=== PATIENT | male | born 1980 | race American Indian/Alaskan Native ===

== ENCOUNTER 2018-10-31 04:59 | Emergency (ER) | payer OTHER ==
[2018-10-31] MEDS ORDERED: ASPIRIN PO ONE (05:14)
[2018-10-31 05:41] LABS: Basophils # (Auto) 0.1 K/mm3 (0.0-0.1); Basophils % (Auto) 1.1 % (0.0-1.8); Eosinophils # (Auto) 0.1 K/mm3 (0.0-0.4); Eosinophils % (Auto) 1.1 % (0.0-4.3); Hematocrit 40.2 % (35.5-45.6); Hemoglobin 13.5 gm/dl (11.8-15.2); Lymphocytes # (Auto) 3.5 K/mm3 (1.2-5.4); Lymphocytes % (Auto) 38.7 % (13.4-35.0); Mean Corpuscular HGB Conc 34 % (32-34); Mean Corpuscular Volume 101 fl (84-94); Monocytes # (Auto) 0.5 K/mm3 (0.0-0.8); Platelet Count 359 K/mm3 (140-440); Red Blood Count 3.98 M/mm3 (3.65-5.03); Red Cell Distribution Width 13.7 % (13.2-15.2)
[2018-10-31 05:56] LABS: BUN/Creatinine Ratio 14; Blood Urea Nitrogen 21 mg/dL (9-20); Calcium 8.6 mg/dL (8.4-10.2); Hemolysis Index 25
[2018-10-31] MEDS ORDERED: IBUPROFEN PO ONE (06:40)
[2018-10-31] MEDS ORDERED: PEPCID PO ONE (06:40)
[2018-10-31] MEDS ORDERED: TYLENOL PO ONE (06:40)
--- NOTE | 2018-10-31 06:42 | Emergency Department Report ---
ED Chest Pain HPI - General Chief Complaint: Chest Pain Stated Complaint: CHEST PAIN Time Seen by Provider: 10/31/18 06:33 Source: patient, RN notes reviewed Mode of arrival: Ambulatory Limitations: No Limitations - History of Present Illness Initial Comments: This is a 38-year-old gentleman who is not known to this provider previously. He consumes tobacco, primary care doctor, and otherwise denies chronic medical conditions. He presents to the ER with a complaint of nontraumatic central and left-sided chest pain, which started approximately 90 minutes to 2 hours prior to presentation, which does not radiate to the back, arms and neck, is not as sociated with vomiting, diaphoresis or shortness of breath, does not have exacerbating or relieving factors, with the exception of sitting up, which she indicates makes the pain worse. He denies leg pain, leg swelling, cocaine use, surgery, travel, and denies a history of DVT or pulmonary embolus risk factors. He believes that his mother has a history of "heart" problems, but he is not sure what she has. He reports no severe get medical history in his father, does not report any symptoms medical history his siblings. The chest pains described as aching, and does not radiate anywhere, and is not associated with consumption of heavy, spicy foods. MD Complaint: chest pain -: Gradual, hour(s) Onset: during rest Pain Location: substernal, left chest Pain Radiation: none Severity: mild Quality: aching Consistency: constant Improves With: other Worsens With: other Context: other Aspirin use within the Past 7 Days: (0) No - Related Data On Oral Contraceptives: No Previous Rx's Medication Instructions Recorded Last Taken Type Promethazine [Phenergan] 25 mg PO Q6H PRN #10 tablet 12/31/14 Unknown Rx Aspirin [Aspirin BABY CHEW TAB] 81 mg PO QDAY #30 tab.chew 10/31/18 Unknown Rx Allergies Allergy/AdvReac Type Severity Reaction Status Date / Time No Known Allergies Allergy Verified 12/31/14 19:28 Heart Score - HEART Score History: Slightly suspicious EKG: Normal Age: < 45 Risk factors: 1-2 risk factors Troponin: < normal limit HEART Score: 1 - Critical Actions Critical Actions: 0-3 pts:0.9-1.7%risk of adverse cardiac event.Candidate for d ischarge ED Review of Systems ROS: Stated complaint: CHEST PAIN Other details as noted in HPI Constitutional: denies: fever Eyes: denies: eye discharge ENT: denies: epistaxis Respiratory: denies: cough, shortness of breath, wheezing Cardiovascular: chest pain Gastrointestinal: denies: abdominal pain, nausea, vomiting Genitourinary: denies: dysuria Musculoskeletal: denies: arthralgia, myalgia Skin: denies: lesions Neurological: denies: weakness Psychiatric: denies: anxiety ED Past Medical Hx - Past Medical History Previous Medical History?: No Hx Hypertension: No Hx CVA: No Hx Heart Attack/AMI: No Hx Congestive Heart Failure: No Hx Diabetes: No Hx Deep Vein Thrombosis: No Hx Pulmonary Embolism: No Hx GERD: No Hx Liver Disease: No Hx Renal Disease: No Hx Sickle Cell Disease: No Hx Arthritis: No Hx Headaches / Migraines: No Hx Seizures: No Hx Kidney Stones: No Hx Psychiatric Treatment: No Hx Asthma: No Hx COPD: No Hx Tuberculosis: No Hx Dementia: No Hx HIV: No - Surgical History Past Surgical History?: Yes Hx Coronary Stent: No Hx Open Heart Surgery: No Hx Pacemaker: No Hx Internal Defibrillator: No Hx Cholecystectomy: No Hx Appendectomy: No Hx Breast Surgery: No Additional Surgical History: Left knee surgery and rt ankle surgery - Social History Smoking Status: Current Every Day Smoker Substance Use Type: Alcohol - Medications Home Medications: Home Medications Medication Instructions Recorded Confirmed Last Taken Type Promethazine [Phenergan] 25 mg PO Q6H PRN #10 tablet 12/31/14 Unknown Rx Aspirin [Aspirin BABY CHEW TAB] 81 mg PO QDAY #30 tab.chew 10/31/18 Unknown Rx ED Physical Exam - General Limitations: No Limitations General appearance: alert, in no apparent distress - Head Head exam: Present: atraumatic, normocephalic - Eye Eye exam: Present: normal appearance, EOMI. Absent: nystagmus - ENT ENT exam: Present: normal exam, normal orophraynx, mucous membranes moist, normal external ear exam - Neck Neck exam: Present: normal inspection, full ROM. Absent: tenderness, meningismus - Respiratory Respiratory exam: Present: normal lung sounds bilaterally. Absent: respiratory distress - Cardiovascular Cardiovascular Exam: Present: regular rate, normal rhythm, normal heart sounds. Absent: bradycardia, tachycardia, irregular rhythm, systolic murmur, diastolic murmur, rubs, gallop - GI/Abdominal GI/Abdominal exam: Present: soft. Absent: distended, tenderness, guarding, rebound, rigid, pulsatile mass - Rectal Rectal exam: Present: deferred - Extremities Exam Extremities exam: Present: normal inspection, full ROM, other (2+ pulses noted in the bilateral upper, lower extremities. Compartments soft. No long bony tenderness. The pelvis is stable.). Absent: pedal edema, joint swelling, calf tenderness - Back Exam Back exam: Present: normal inspection, full ROM. Absent: tenderness, CVA tenderness (R), paraspinal tenderness, vertebral tenderness - Neurological Exam Neurological exam: Present: alert, other (Extraocular movements intact. Tongue midline. No facial droop. Facial sensation intact to light touch in the V1, V2, V3 distribution bilaterally. 5 and 5 strength in 4 extremities.. Sensation is intact to light touch in 4 extremities.). Absent: motor sensory deficit - Psychiatric Psychiatric exam: Present: normal affect, normal mood - Skin Skin exam: Present: warm, dry, intact, normal color. Absent: rash ED Course Vital Signs 10/31/18 10/31/18 10/31/18 05:10 06:27 06:31 Temperature 97.3 F L Pulse Rate 82 70 Respiratory 20 16 Rate Blood Pressure 132/80 107/66 O2 Sat by Pulse 99 97 96 Oximetry 10/31/18 06:55 Temperature Pulse Rate Respiratory 18 Rate Blood Pressure O2 Sat by Pulse 97 Oximetry - Reevaluation(s) Reevaluation #1: 10/31/18 07:04 Differential diagnosis, including not limited to: GERD, gastritis, hiatal hernia, pneumonia, pneumothorax, pericarditis, myocarditis, acute coronary syndrome Assessment and plan: 38-year-old gentleman with chest pain which is clinically unlikely to be pulmonary embolus, no DVT or pulmonary embolus risk factors, low risk by well's criteria, PERC negative, with essentially unremarkable EKG, negative troponin, low risk by MAXIM score, low risk by Heart score. The patient is at low risk for major adverse cardiac event. On my initial evaluation, patient resting comfortably in stretcher, in no acute distress, sleeping. His physical examination is unremarkable. His objective laboratory and ancillary testing S4 unremarkable. Repeat troponin, repeat EKG pending, patient's symptoms will be treated supportively, he is counseled that if his objective testing is unremarkable, he'll be referred to outpatient primary care and/or cardiology. Patient verbalizes understanding. Reevaluation #2: 10/31/18 08:34 Repeat EKG appears to be unchanged from prior. Patient resting comfortably. Troponin negative 2. Vital signs stable. We will discharge patient with instructions to follow-up as an outpatient. MAXIM score - Maxim Score Age > 65: (0) No Aspirin use within the Past 7 Days: (0) No 3 or more CAD Risk Factors: (0) No 2 or more Angina events in past 24 hrs: (0) No Known CAD with more than 50% Stenosis: (0) No Elevated Cardiac Markers: (0) No ST Deviation Greater than 0.5mm: (0) No MAXIM Score: 0 ED Medical Decision Making - Lab Data Result diagrams: 10/31/18 Unknown 10/31/18 Unknown Vital Signs 10/31/18 10/31/18 10/31/18 05:10 06:27 06:31 Temperature 97.3 F L Pulse Rate 82 70 Respiratory 20 16 Rate Blood Pressure 132/80 107/66 O2 Sat by Pulse 99 97 96 Oximetry 10/31/18 06:55 Temperature Pulse Rate Respiratory 18 Rate Blood Pressure O2 Sat by Pulse 97 Oximetry Lab Results 10/31/18 10/31/18 Range/Units Unknown Unknown WBC 9.0 (4.5-11.0) K/mm3 RBC 3.98 (3.65-5.03) M/mm3 Hgb 13.5 (11.8-15.2) gm/dl Hct 40.2 (35.5-45.6) % MCV 101 H (84-94) fl MCH 34 H (28-32) pg MCHC 34 (32-34) % RDW 13.7 (13.2-15.2) % Plt Count 359 (140-440) K/mm3 Lymph % (Auto) 38.7 H (13.4-35.0) % Ferry % (Auto) 5.0 (0.0-7.3) % Eos % (Auto) 1.1 (0.0-4.3) % Baso % (Auto) 1.1 (0.0-1.8) % Lymph # 3.5 (1.2-5.4) K/mm3 Ferry # 0.5 (0.0-0.8) K/mm3 Eos # 0.1 (0.0-0.4) K/mm3 Baso # 0.1 (0.0-0.1) K/mm3 Seg Neutrophils % 54.1 (40.0-70.0) % Seg Neutrophils # 4.9 (1.8-7.7) K/mm3 Sodium 138 (137-145) mmol/L Potassium 3.9 (3.6-5.0) mmol/L Chloride 99.4 (98-107) mmol/L Carbon Dioxide 25 (22-30) mmol/L Anion Gap 18 mmol/L BUN 21 H (9-20) mg/dL Creatinine 1.5 (0.8-1.5) mg/dL Estimated GFR > 60 ml/min BUN/Creatinine Ratio 14 % Glucose 94 (75-100) mg/dL Calcium 8.6 (8.4-10.2) mg/dL Troponin T < 0.010 (0.00-0.029) ng/mL - EKG Data -: EKG Interpreted by [facility] EKG shows normal: sinus rhythm Rate: normal - EKG Data When compared to previous EKG there are: previous EKG unavailable Interpretation: unchanged when compared t 10/31/18 07:06 Sinus, 69 bpm, normal axis, QTC prolonged, high left ventricular voltage, abnormal EKG, not consistent with ST elevation myocardial infarction. There is no prior for comparison. - Radiology Data Radiology results: report reviewed, image reviewed X-ray the chest is unremarkable for acute disease Critical care attestation.: If time is entered above; I have spent that time in minutes in the direct care of this critically ill patient, excluding procedure time. ED Disposition Clinical Impression: History of chest pain Disposition: DC-01 TO HOME OR SELFCARE Is pt being admited?: No Does the pt Need Aspirin: No Condition: Stable Additional Instructions: Discontinue or decrease tobacco consumption. Take the aspirin prescription as recommended. Follow up with any of the listed cardiology groups within the next 3-5 days. Please return to the ER right away with new pain, worsening pain, migration of pain, projectile vomiting, change in mental status, confusion, inability to speak, inability to breathe, new, worsening or different symptoms. Prescriptions: Aspirin [Aspirin BABY CHEW TAB] 81 mg PO QDAY #30 tab.chew Referrals: [facility] [Provider Group] - 3-5 Days [facility] [Provider Group] - 3-5 Days [facility] [Provider Group] - 7-10 days
[2018-10-31 06:55] VITALS: BP 107/66
--- NOTE | 2018-10-31 06:57 | XRay Report ---
FINAL REPORT EXAM: XR CHEST ROUTINE 2V HISTORY: cp TECHNIQUE: PA and lateral views of the chest were obtained. FINDINGS: The lungs are clear. The heart size is normal. Pleural fluid is not seen. The bones soft tissues appe ar normal. IMPRESSION: Normal chest.
== END 2018-10-31 09:33 | disposition home or self-care (01) ==
LOC: ED 04:59
DX: R07.89 Other chest pain (principal); F17.200 Nicotine dependence, unspecified, uncomplicated; Z98.890 Other specified postprocedural states
CPT/HCPCS: 36415; 71046; 80048; 84484; 85025; 93005; 93010

== ENCOUNTER 2019-08-03 09:12 | Emergency (ER) | payer SELFPAY ==
[2019-08-03 09:18] VITALS: BP 118/88
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
== END 2019-08-03 10:19 | disposition left against medical advice (07) ==
LOC: ED 09:12
DX: S81.801A Unspecified open wound, right lower leg, initial encounter (principal); W34.00XA Accidental discharge from unspecified firearms or gun, initial encounter; Y93.89 Activity, other specified; Y92.89 Other specified places as the place of occurrence of the external cause; Y99.8 Other external cause status
CPT/HCPCS: 99281

== ENCOUNTER 2019-11-27 14:18 | Emergency (ER) | payer SELFPAY | END 2019-11-27 21:49 | disposition left against medical advice (07) | LOC: ED 14:18 | DX: R10.32 Left lower quadrant pain (principal); Z53.21 Procedure and treatment not carried out due to patient leaving prior to being seen by health care provider ==